=== PATIENT | female | born 1995 ===

== ENCOUNTER 2021-02-22 16:43 | Emergency (ER) | payer OTHER ==
[2021-02-22 16:54] VITALS: BP 122/76
--- NOTE | 2021-02-22 17:24 | XRAY Report ---
PROCEDURE: Chest 1 View X-Ray INDICATIONS: Cough TECHNIQUE: One view of the chest was acquired. COMPARISON: None FINDINGS: Surgical changes and devices: None. Lungs and pleura: No pleural effusions or pneumothorax. Lungs are clear. Mediastinum: Mediastinal contours appear normal. Heart size is normal. Bones and chest wall: No suspicious bony lesions. Overlying soft tissues appear unremarkable. IMPRESSION: No acute cardiopulmonary process demonstrated radiographically. Reviewed by: Barber Harden MD on 02/22/2021 5:23 PM PDT Approved by: Barber Harden MD on 02/22/2021 5:23 PM PDT Station ID: [id number]
[2021-02-22] MEDS ORDERED: BENZONATATE 100 MG CAPSULE PO STA (18:01)
[2021-02-22] MEDS ORDERED: ALBUTEROL NEB 2.5 MG/3 ML INH STA (18:01)
--- NOTE | 2021-02-22 18:01 | ED Physician Documentation ---
PD HPI URI - Stated complaint Stated Complaint: CP,COUGH, SORE THROAT - Chief complaint Chief Complaint: Resp - History obtained from History obtained from: Patient - History of Present Illness Timing - onset: How many weeks ago (3) Timing duration: Weeks (3) Timing details: Gradual onset Pain level max: 0 Pain level now: 0 Associated symptoms: Dry cough. No: Fever, Chills, Sore throat, Productive cough Improves by: Rest Worsened by: Activity Recently seen: Not recently seen - Additional information Additional information: 25-year-old female has had her Covid vaccinations. She states that she has had chest tightness, wheezing and cough for the past 3 weeks. Nothing makes it better or worse. Review of Systems Constitutional: denies: Fever, Chills Nose: denies: Rhinorrhea / runny nose, Congestion Respiratory: reports: Cough, Wheezing GI: denies: Vomiting, Diarrhea : denies: Dysuria, Frequency, Hesitancy, Now EGA Skin: denies: Rash Musculoskeletal: denies: Neck pain, Back pain Neurologic: denies: Headache PD PAST MEDICAL HISTORY - Past Medical History Past Medical History: No - Present Medications Home Medications: Ambulatory Orders Medication Instructions Recorded Confirmed Albuterol Sulf [Ventolin Hfa 1 - 2 puffs INH Q4HR PRN #1 inhaler 02/22/21 Inhaler] Benzonatate [Tessalon] 200 mg PO TID PRN #30 cap 02/22/21 - Allergies Allergies/Adverse Reactions: Allergies Allergy/AdvReac Type Severity Reaction Status Date / Time amoxicillin Allergy Hives Verified 02/22/21 16:51 - Living Situation Living Arrangement: reports: At home - Social History Does the pt smoke?: No Smoking Status: Never smoker PD ED PE NORMAL - Vitals Vital signs reviewed: Yes - General General: Alert and oriented X 3, No acute distress, Well developed/nourished - HEENT HEENT: PERRL, Ears normal, Moist mucous membranes, Pharynx benign - Neck Neck: Supple, no meningeal sign - Cardiac Cardiac: RRR - Respiratory Respiratory: No respiratory distress, Other (Mildly diminished breath sounds bilaterally with wheezing) - Abdomen Abdomen: Soft, Non tender, Non distended - Derm Derm: Warm and dry - Extremities Extremities: No edema - Neuro Neuro: Alert and oriented X 3 - Psych Psych: Normal mood, Normal affect Results - Vitals Vitals: Oxygen O2 Source Room air - Labs Labs: Laboratory Tests 02/22/21 17:26 Nasal Adenovirus (PCR) NOT DETECTED Nasal B. parapertussis DNA (PCR) NOT DETECTED Nasal Coronavir 229E PCR NOT DETECTED Nasal Coronavir HKU1 PCR NOT DETECTED Nasal Coronavir NL63 PCR NOT DETECTED Nasal Coronavir OC43 PCR NOT DETECTED Nasal Enterovir/Rhinovir PCR NOT DETECTED Nasal Influenza B PCR NOT DETECTED Nasal Influenza A PCR NOT DETECTED Nasal Parainfluen 1 PCR NOT DETECTED Nasal Parainfluen 2 PCR NOT DETECTED Nasal Parainfluen 3 PCR NOT DETECTED Nasal Parainfluen 4 PCR NOT DETECTED Nasal RSV (PCR) NOT DETECTED Nasal B.pertussis DNA PCR NOT DETECTED Nasal C.pneumoniae (PCR) NOT DETECTED Victor Manuel Human Metapneumo PCR NOT DETECTED Nasal M.pneumoniae (PCR) NOT DETECTED Nasal SARS-CoV-2 (PCR) NOT DETECTED - Rads (name of study) cxr Radiology: Final report received, EMP read contemporaneously, See rad report (no acute abnormality. ) PD MEDICAL DECISION MAKING - ED course Complexity details: reviewed results, re-evaluated patient, considered differential, d/w patient ED course: Patient with what appears to be likely a viral upper respiratory infection. She is very well-appearing, nontoxic. Feels better after nebulizer treatment. Will prescribe Tessalon and albuterol for home. We will have her follow-up with her doctor as needed for further care. No indication for antibiotics. Patient counseled regarding signs and symptoms for which I believe and urgent re- evaluation would be necessary. Patient with good understanding of and agreement to plan and is comfortable going home at this time This document was made in part using voice recognition software. While efforts are made to proofread this document, sound alike and grammatical errors may occur. Departure - Departure Disposition: 01 Home, Self Care Clinical Impression: Upper respiratory tract infection Qualifiers: URI type: unspecified URI Qualified Code(s): J06.9 - Acute upper respiratory infection, unspecified Condition: Good Instructions: ED URI Viral Follow-Up: your,doctor in 1 week if not better [Other] Prescriptions: Albuterol Sulf [Ventolin Hfa Inhaler] 1 - 2 puffs INH Q4HR PRN #1 inhaler PRN Reason: Shortness Of Air/Wheezing Benzonatate [Tessalon] 200 mg PO TID PRN #30 cap PRN Reason: Cough Comments: Your prescriptions were sent to [facility] in [place]. Please follow-up with your doctor as needed for further care. Return if you worsen. Discharge Date/Time: 02/22/21 19:01
[2021-02-22] MEDS ORDERED: ALBUTEROL 1 PUFF INH STA (18:14)
[2021-02-22 19:31] LABS: B. PARAPERTUSSIS- RESP PCR PAN NOT DETECTED; B. PERTUSSIS- RESP PCR PANEL NOT DETECTED; C. PNEUMONIAE- RESP PCR PANEL NOT DETECTED; CORONAVIRUS 229E-RESP PCR NOT DETECTED; CORONAVIRUS HKU1-RESP PCR NOT DETECTED; CORONAVIRUS NL63-RESP PCR NOT DETECTED; CORONAVIRUS OC43-RESP PCR NOT DETECTED; HUMAN METAPNEUMOVIRUS NOT DETECTED; INFLUENZA A- RESP PCR PANEL NOT DETECTED; INFLUENZA B - RESP PCR PANEL NOT DETECTED; M. PNEUMONIAE- RESP PCR PANEL NOT DETECTED; PARAINFLUENZA VIRUS 1 NOT DETECTED; PARAINFLUENZA VIRUS 2 NOT DETECTED; PARAINFLUENZA VIRUS 3 NOT DETECTED; PARAINFLUENZA VIRUS 4 NOT DETECTED; RHINOVIRUS/ENTEROVIRUS NOT DETECTED; RSV- RESP PCR PANEL NOT DETECTED; SARS-CoV-2 -RESP PCR PANEL NOT DETECTED
== END 2021-02-22 19:01 | disposition home or self-care (01) ==
LOC: ED 16:43
DX: J06.9 Acute upper respiratory infection, unspecified (principal); Z20.822 Contact with and (suspected) exposure to COVID-19
CPT/HCPCS: 0202U; 71045; 94640; 94664; 99283; 99284; A9270

== ENCOUNTER 2021-06-19 14:15 | Emergency (ER) | payer OTHER ==
[2021-06-19 14:34] VITALS: BP 111/62
--- NOTE | 2021-06-19 14:49 | ED Physician Documentation ---
PD HPI URI - Stated complaint Stated Complaint: THROAT PX/SWELLING - Chief complaint Chief Complaint: Heent - History obtained from History obtained from: Patient - History of Present Illness Timing - onset: Yesterday Timing duration: Days (2) Timing details: Abrupt onset, Still present Associated symptoms: Fever, Chills, Sore throat, Swollen nodes. No: Nasal congestion, Dry cough, NVD Contributing factors: Sick contact (coworker positive for COVID last week.). No: Unimmunized Similar symptoms before: Has not had sx before Recently seen: Not recently seen Review of Systems Constitutional: reports: Fever, Chills, Myalgias Nose: denies: Rhinorrhea / runny nose, Congestion Throat: reports: Sore throat Cardiac: denies: Chest pain / pressure Respiratory: denies: Cough GI: denies: Nausea, Vomiting, Diarrhea Skin: denies: Rash PD PAST MEDICAL HISTORY - Past Medical History Cardiovascular: None Respiratory: None Endocrine/Autoimmune: None - Present Medications Home Medications: Ambulatory Orders Medication Instructions Recorded Confirmed HYDROcod/ACETAM 5/325 [[place] 5/325] 1 ea PO Q6H PRN #10 tablet 06/19/21 cephALEXin [Keflex] 500 mg PO TID #20 cap 06/19/21 dexAMETHasone [Decadron] 4 mg PO DAILY #5 tablet 06/19/21 - Allergies Allergies/Adverse Reactions: Allergies Allergy/AdvReac Type Severity Reaction Status Date / Time amoxicillin Allergy Hives Verified 06/19/21 14:32 - Social History Does the pt smoke?: No Smoking Status: Never smoker PD ED PE NORMAL - Vitals Vital signs reviewed: Yes - General General: Alert and oriented X 3, Well developed/nourished, Other (appears in pain with swallowing.) - HEENT HEENT: Ears normal. No: Pharynx benign (tonsils swelling with redness and odorous exudate bilaterally without peritonsillar swelling nor deviation. ) - Neck Neck: Supple, no meningeal sign, Other (anterior adenopathy that is tender, right more than left. ) - Cardiac Cardiac: RRR, No murmur - Respiratory Respiratory: Clear bilaterally Results - Vitals Vitals: Vital Signs - 24 hr 06/19/21 14:32 Temperature 37.6 C Heart Rate 102 H Respiratory 18 Rate Blood Pressure 111/62 O2 Saturation 100 Oxygen O2 Source Room air - Labs Labs: Laboratory Tests 06/19/21 14:34 Group A Strep Rapid Negative PD MEDICAL DECISION MAKING - ED course Complexity details: considered differential (clinically 4/4 Cent[facility] for bacterial tonsillitis. ), d/w patient Departure - Departure Disposition: 01 Home, Self Care Clinical Impression: Exudative tonsillitis Condition: Stable Record reviewed to determine appropriate education?: Yes Instructions: ED Strep Pharyngitis Poss Follow-Up: CHRIS HALE [Primary Care Provider] - Prescriptions: dexAMETHasone [Decadron] 4 mg PO DAILY #5 tablet cephALEXin [Keflex] 500 mg PO TID #20 cap HYDROcod/ACETAM 5/325 [[place] 5/325] 1 ea PO Q6H PRN #10 tablet PRN Reason: Pain Comments: Initial strep test is negative but your tonsil exam and throat exam looks very consistent with bacterial tonsillitis. As such I would treat this initially with antibiotics anti-inflammatories and pain medicine pending the culture result in 2 days. Your Covid test should result in the next day or 2 as well. If your bacterial culture is negative, then we could potentially stop the antibiotics since it would be shown not to be bacterial. However would rather start treating it with antibiotics as it looks most likely to be bacterial. Off work for the next day or 2 pending culture results and also improving your symptoms. Stay well-hydrated. Tylenol or ibuprofen if needed for pains. Add the hydrocodone if needed for worse pain. I transmitted your prescriptions to [facility] pharmacy in [place]. I am prescribing a short course of narcotic pain medication for you. These are potentially dangerous and addictive medications that should be used carefully. These medications may constipate you. Take an jate-wex-qjywurq stool softener such as docusate twice daily with plenty of water while taking these medicatio ns. If you go 24 hours without a bowel movement, take [id number]-cwa-[id number] MiraLAX, per package instructions. Do not drink or drive while taking these medications. If you received narcotic or sedating medications while in the emergency department do not drive for 24 hours. Store this medication in a safe, secure place and out of reach of children. It is a violation of federal law to give or sell this medication to another person or to use in a manner other than prescribed. The ED will not refill narcotic prescriptions, including prescriptions lost or stolen. You can dispose of unwanted medications at the [facility]'s office or at several pharmacies such as [facility]. Forms: Activity restrictions Discharge Date/Time: 06/19/21 15:56
[2021-06-19 14:52] LABS: RAPID STREP SCREEN Negative (Negative)
[2021-06-19] MEDS ORDERED: ACETAMINOPHEN 325 MG TABLET PO STA (15:11)
[2021-06-19] MEDS ORDERED: cephALEXin 250 MG CAPSULE PO STA (15:11)
[2021-06-19] MEDS ORDERED: diphenhydrAMINE ELIXIR 25 MG/10 ML UDC PO STA (15:11)
[2021-06-19] MEDS ORDERED: DEXAMETHASONE 10 MG/ML VIAL PO STA (15:11)
[2021-06-19] MEDS ORDERED: CHERRY SYRUP 10 ML UDC PO ONE (15:11)
== END 2021-06-19 15:56 | disposition home or self-care (01) ==
LOC: ED 14:15
DX: J03.80 Acute tonsillitis due to other specified organisms (principal); B96.89 Other specified bacterial agents as the cause of diseases classified elsewhere; Z20.822 Contact with and (suspected) exposure to COVID-19
CPT/HCPCS: 87070; 87430; 87635; 99282; 99283; A9270

== ENCOUNTER 2021-06-24 13:40 | Outpatient (CLI) | payer OTHER | END 2021-06-24 13:41 | disposition home or self-care (01) | LOC: LAB 13:40 | PROVIDERS: ATTEND Emergency Medicine | DX: Z53.9 Procedure and treatment not carried out, unspecified reason (principal) ==